=== PATIENT | female | born 1965 | race Caucasian/White ===

== ENCOUNTER 2024-10-04 21:06 | Inpatient (IN) | payer BC ==
[~2024-10-04] VITALS: Ht 154.9 cm; Wt 75.3 kg
[2024-10-04 22:30] LABS: BASOPHILS % 0.8 % (0.0-2.0); EOSINOPHILS % 3.9 % (0.0-5.0); HEMATOCRIT. 39.2 % (36.0-48.0); HEMOGLOBIN. 13.3 g/dL (12.0-16.0); LYMPHOCYTES % 20.6 % (20.0-50.0); MEAN PLATELET VOLUME 7.5 fl (7.4-10.4); MONOCYTES % 7.2 % (2.0-8.0); NEUTROPHILS % 67.5 % (40.0-76.0); PLATELET 331 x1000/uL (130-400); RED BLOOD CELL COUNT 4.34 mill/uL (4.2-5.4); RED CELL DISTRIBUTION WIDTH 12.5 % (11.6-14.6)
[2024-10-04 22:44] LABS: CREATININE 1.2 mg/dL (0.6-1.0); UREA NITROGEN BLOOD 18 mg/dL (9-23)
[2024-10-04 23:08] LABS: TROPONIN I HIGH SENSITIVITY 1132 ng/L (3.0-34)
[2024-10-05] VITALS (9 sets, daily range): BP systolic 119–166; BP diastolic 77–107; PULSE 59–82; RESP 9–22; TEMP 36.1–36.7; O2SAT 93–98
[2024-10-05] MEDS: ASPIRIN 81MG TABLET PO ONE (00:15)
[2024-10-05] MEDS ORDERED: HEPARIN 25,000 UNITS PREMIX 250 ML IV ONE (00:15)
[2024-10-05] MEDS ORDERED: GUAIFENESIN 200MG/10ML SUGAR FREE UDC PO PRN (01:45)
[2024-10-05] MEDS ORDERED: ONDANSETRON HCL 4MG/2ML INJ IV PRN (01:45)
[2024-10-05] MEDS ORDERED: ACETAMINOPHEN 325MG TABLET PO PRN ×3 (01:45→12:30)
[2024-10-05] MEDS ORDERED: CLONIDINE 0.1MG TABLET PO PRN (01:45)
[2024-10-05] MEDS ORDERED: IPRATROPIUM/ALBUTEROL 0.5-3(2.5)MG/3ML NEB HHN PRN (01:45)
[2024-10-05] MEDS: HEPARIN 5000 UNITS/ML VIAL IV SCH (02:03)
[2024-10-05 02:08] LABS: TROPONIN I HIGH SENSITIVITY 6183 ng/L (3.0-34)
[2024-10-05] MEDS: ASPIRIN 81MG TABLET PO NR (02:09)
[2024-10-05] MEDS: HEPARIN 25,000 UNITS PREMIX 250 ML IV SCH (02:33)
[2024-10-05] MEDS: ATORVASTATIN CALCIUM 40MG TABLET PO SCH (04:16)
[2024-10-05] MEDS: METOPROLOL TARTRATE 50MG TABLET PO NR (04:17)
[2024-10-05] MEDS ORDERED: HEPARIN BOLUS PRN aPTT 30-44 IV (08:00)
[2024-10-05] MEDS ORDERED: HEPARIN BOLUS PRN aPTT <30 IV (08:00)
[2024-10-05] MEDS ORDERED: MAGNESIUM/ALUMINUM HYDROXIDE/SIMETHICONE 30ML UDC PO PRN (09:00)
[2024-10-05] MEDS ORDERED: DOCUSATE SODIUM 100MG CAPSULE PO PRN (09:00)
[2024-10-05] MEDS: NITROGLYCERIN 0.4MG TABLET SL SL PRN (10:13)
[2024-10-05] MEDS: CLOPIDOGREL 75MG TABLET PO SCH (10:14)
[2024-10-05] MEDS: ASPIRIN 81MG TABLET PO SCH (10:14)
[2024-10-05 10:43] LABS: BASOPHILS % 0.6 % (0.0-2.0); EOSINOPHILS % 1.6 % (0.0-5.0); HEMATOCRIT. 40.8 % (36.0-48.0); HEMOGLOBIN. 13.9 g/dL (12.0-16.0); LYMPHOCYTES % 19.4 % (20.0-50.0); MEAN PLATELET VOLUME 8.3 fl (7.4-10.4); MONOCYTES % 7.1 % (2.0-8.0); NEUTROPHILS % 71.3 % (40.0-76.0); PLATELET 339 x1000/uL (130-400); RED BLOOD CELL COUNT 4.54 mill/uL (4.2-5.4); RED CELL DISTRIBUTION WIDTH 12.7 % (11.6-14.6)
[2024-10-05] MEDS ORDERED: DIPHENHYDRAMINE 50MG/ML VIAL ONE (10:52)
[2024-10-05] MEDS ORDERED: LIDOCAINE HCL 1% 20ML VIAL ONE (10:52)
[2024-10-05] MEDS ORDERED: VERAPAMIL HCL 2.5 MG/1 ML 2ML VIAL IV ONE (10:52)
[2024-10-05] MEDS ORDERED: HEPARIN 1000 UNITS/ML 10ML ONE (10:52)
[2024-10-05 11:11] LABS: TRIGLYCERIDE 62.0 mg/dL (0-150)
[2024-10-05 11:12] LABS: LDL CHOLESTEROL 154.0 mg/dL (5-100)
[2024-10-05 11:15] LABS: T4 FREE 1.22 ng/dL (0.89-1.76)
[2024-10-05] MEDS ORDERED: FENTANYL CITRATE/PF 50MCG/ML 2ML VIAL ONE (11:23)
[2024-10-05] MEDS ORDERED: MIDAZOLAM HCL 2 MG/2 ML VIAL ONE (11:23)
[2024-10-05] MEDS ORDERED: METHYLPREDNISOLONE SOD SUCC 125MG/2ML (ACT-O-VIAL) ONE (11:23)
[2024-10-05 11:30] LABS: TROPONIN I HIGH SENSITIVITY 4584 ng/L (3.0-34)
[2024-10-05] MEDS ORDERED: ATROPINE SULFATE 1MG/10ML SYR IV PRN (12:30)
[2024-10-05] MEDS ORDERED: SODIUM CHLORIDE 0.45% 500 ML IV ONE (14:00)
[2024-10-06] VITALS (10 sets, daily range): BP systolic 107–142; BP diastolic 67–82; PULSE 57–79; RESP 10–22; TEMP 36.7–36.8; O2SAT 92–96
[2024-10-06 06:31] LABS: CREATININE 0.9 mg/dL (0.6-1.0); UREA NITROGEN BLOOD 16 mg/dL (9-23)
[2024-10-06 06:38] LABS: BASOPHILS % 0.2 % (0.0-2.0); EOSINOPHILS % 0.1 % (0.0-5.0); HEMATOCRIT. 39.8 % (36.0-48.0); HEMOGLOBIN. 13.3 g/dL (12.0-16.0); LYMPHOCYTES % 14.4 % (20.0-50.0); MEAN PLATELET VOLUME 8.1 fl (7.4-10.4); MONOCYTES % 7.1 % (2.0-8.0); NEUTROPHILS % 78.2 % (40.0-76.0); PLATELET 325 x1000/uL (130-400); RED BLOOD CELL COUNT 4.38 mill/uL (4.2-5.4); RED CELL DISTRIBUTION WIDTH 12.6 % (11.6-14.6)
[2024-10-06] MEDS ORDERED: METO-385 MT (13:20)
[2024-10-06] MEDS ORDERED: ASPI-1497 MT (13:20)
[2024-10-06] MEDS ORDERED: ATOR40TA70 MT (13:20)
[2024-10-06] MEDS ORDERED: AMLO2.5T45 MT (13:20)
== END 2024-10-06 16:35 | disposition home or self-care (01) | DRG 281 ==
LOC: ER 21:06 → 5EST 10-05 01:03 → EDBEDREQ 10-05 01:06 → EDBEDREQTM 10-05 01:06
PROVIDERS: ADMIT Internal Medicine; ATTEND Internal Medicine
PROC: 4A023N7 Measurement of Cardiac Sampling and Pressure, Left Heart, Percutaneous Approach (ICD-10-PCS; principal; 2024-10-05)
PROC: B211YZZ Fluoroscopy of Multiple Coronary Arteries using Other Contrast (ICD-10-PCS; 2024-10-05)
DX: I25.10 Atherosclerotic heart disease of native coronary artery without angina pectoris (principal); I51.81 Takotsubo syndrome; I21.A1 Myocardial infarction type 2; N17.9 Acute kidney failure, unspecified; E83.52 Hypercalcemia; E86.0 Dehydration; I10 Essential (primary) hypertension; D72.829 Elevated white blood cell count, unspecified; I16.0 Hypertensive urgency; E78.5 Hyperlipidemia, unspecified; G43.909 Migraine, unspecified, not intractable, without status migrainosus; Z88.8 Allergy status to other drugs, medicaments and biological substances; Z79.899 Other long term (current) drug therapy; Z91.013 Allergy to seafood; Z91.040 Latex allergy status
CPT/HCPCS: 36415; 71045; 80048; 80061; 83880; 84439; 84443; 84484; 85025; 86141; 93005; 93306; 93458; 93970; 99291; A4606; C1769; C1887; C1893; J1200; J1644; J2003; J2250; J2919; J3010; J3490